=== PATIENT | female | born 1970 | race Caucasian/White ===

== ENCOUNTER 2017-01-22 11:00 | Emergency (ER) | payer OTHER ==
--- NOTE | ~2017-01-22 | US85 ---
[facility] A Service of [facility] RADIOLOGY TEXT RESULTS PATIENT: NILAM HOYOS LOCATION: [facility] : 68 UNIT #: [id number] AGE: [address]: Ba Cohen MD SEX: F ORDER DR: [id number] [facility] [address] [place], [place] [address] [id number] E MR#: [id number] Acc #: [id number] NAME: NILAM HOYOS : 1970 SEX: F STUDY DATE/TIME: 01/22/2017 12:14 UNIT: [facility] ROOM: STUDY DESCRIPTION: [employer] Attending Physician: Ba Cohen M.D. Ordering Physician: Ba Cohen M.D. Primary Care Physician: Tori Barnes A.P.R.N. MEDICAL IMAGING REPORT This report is preliminary unless electronic signature is present EXAM Right lower extremity venous duplex 01/22/2017 HISTORY Right lower extremity pain and swelling for 3 days. Evaluate for deep vein thrombosis. TECHNIQUE Venous ultrasound examination of the right lower extremity was performed using grayscale, spectral Doppler and color flow Doppler imaging. FINDINGS The examination is negative. There is no evidence of right lower extremity deep venous thrombus from the groin to the lower calf. Visualized greater saphenous vein is also patent. IMPRESSION Negative examination. No evidence of right lower extremity deep venous thrombosis. Dictated by... Paul Crowley M.D. THIS IS AN ELECTRONICALLY VERIFIED REPORT Paul Crowley M.D. at 01/23/2017 7:55 AM CORNELIA/marlene TD: 01/22/2017 16:04 JOB #: [id number] MEDICAL IMAGING REPORT COPY
[~2017-01-22 11:00] MED LIST: ASPIRIN81 M1 PO; BAYER ASPIRIN325 M1; CELEXA PO; DILTIAZEM 24HR240 M1 PO; DIOVAN HCT 1601 EACH PO; MEDROL4 MG/DOSE- PO; MULTI-DAY1 TAB PO; TOPAMAX25 MG PO; TYLENOL325 M1 PO
== END 2017-01-22 12:51 | disposition home or self-care (01) ==
LOC: CED 11:00
DX: M79.604 Pain in right leg (principal); I10 Essential (primary) hypertension; F17.210 Nicotine dependence, cigarettes, uncomplicated; Z90.49 Acquired absence of other specified parts of digestive tract; Z88.5 Allergy status to narcotic agent
CPT/HCPCS: 93971; 99284